=== PATIENT | female | born 1975 | race Caucasian/White ===

== ENCOUNTER 2018-03-15 22:12 | Emergency (ER) | payer OTHER ==
[~2018-03-15] VITALS: Ht 157.5 cm; Wt 61.2 kg
[2018-03-16] MEDS ORDERED: KETO10TA2 PO (03:03)
[2018-03-16] MEDS ORDERED: CYCLOBENZAPRINE10 MG PO (03:03)
[2018-03-16] MEDS ORDERED: ORPHENADRINE C100 MG PO (03:03)
== END 2018-03-16 03:00 | disposition home or self-care (01) ==
LOC: ER 22:12
DX: M62.838 Other muscle spasm (principal)

== ENCOUNTER 2018-04-14 01:13 | Emergency (ER) | payer OTHER ==
[~2018-04-14] VITALS: Ht 162.6 cm; Wt 59.0 kg
[~2018-04-14 01:13] MED LIST: CYCLOBENZAPRINE10 MG PO; KETO10TA2 PO; ORPHENADRINE C100 MG PO
[2018-04-14] MEDS ORDERED: DICLOFENAC POTA50 MG PO (06:25)
== END 2018-04-14 06:59 | disposition home or self-care (01) ==
LOC: ER 01:13
DX: S80.12XA Contusion of left lower leg, initial encounter (principal); W18.39XA Other fall on same level, initial encounter; Y93.89 Activity, other specified; Y92.89 Other specified places as the place of occurrence of the external cause; Y99.8 Other external cause status

== ENCOUNTER 2021-01-02 23:27 | Emergency (ER) | payer OTHER ==
[~2021-01-02] VITALS: Ht 154.9 cm; Wt 59.0 kg
[~2021-01-02 23:27] MED LIST changes: +DICLOFENAC POTA50 MG PO
[2021-01-03] MEDS ORDERED: KETO10TA2 PO (00:31)
[2021-01-03] MEDS ORDERED: ORPHENADRINE C100 MG PO (00:31)
== END 2021-01-03 00:40 ==
LOC: ER 23:27
DX: M62.838 Other muscle spasm (principal)

== ENCOUNTER 2021-02-03 22:57 | Emergency (ER) | payer OTHER ==
[~2021-02-03] VITALS: Ht 154.9 cm; Wt 58.1 kg
[2021-02-04] MEDS ORDERED: DICLOFENAC SOD100 MG PO (02:58)
[2021-02-04] MEDS ORDERED: ORPHENADRINE C100 MG PO (02:58)
== END 2021-02-04 03:05 | disposition home or self-care (01) ==
LOC: ER 22:57
DX: M54.50 Low back pain, unspecified (principal)

== ENCOUNTER 2021-03-06 14:21 | Emergency (ER) | payer OTHER ==
[~2021-03-06] VITALS: Ht 160 cm; Wt 54.0 kg
[~2021-03-06 14:21] MED LIST changes: +DICLOFENAC SOD100 MG PO
== END 2021-03-06 18:48 | disposition home or self-care (01) ==
LOC: ER 14:21
DX: R42 Dizziness and giddiness (principal)

== ENCOUNTER 2021-04-04 11:49 | Outpatient (CLI) | payer OTHER | END 2021-04-04 12:03 | disposition home or self-care (01) | LOC: RAD 11:49 | PROVIDERS: ATTEND Physical Medicine & Rehabilitation | DX: M54.2 Cervicalgia (principal); M54.59 Other low back pain ==

== ENCOUNTER 2021-07-29 10:02 | Outpatient (CLI) | payer OTHER | END 2021-07-29 10:13 | disposition home or self-care (01) | LOC: RAD 10:02 | PROVIDERS: ATTEND Physical Medicine & Rehabilitation | DX: M54.2 Cervicalgia (principal); M25.511 Pain in right shoulder ==

== ENCOUNTER 2021-08-31 09:17 | Outpatient (CLI) | payer OTHER | END 2021-08-31 09:39 | disposition home or self-care (01) | LOC: SONOGRAMA 09:17 | PROVIDERS: ATTEND Physical Medicine & Rehabilitation | DX: M25.511 Pain in right shoulder (principal); M75.121 Complete rotator cuff tear or rupture of right shoulder, not specified as traumatic ==

== ENCOUNTER 2021-10-14 00:32 | Emergency (ER) | payer OTHER ==
[~2021-10-14] VITALS: Ht 154.9 cm; Wt 58.1 kg
[2021-10-14] MEDS ORDERED: KETO10TA2 PO (03:33)
[2021-10-14] MEDS ORDERED: ORPHENADRINE C100 MG PO (03:33)
== END 2021-10-14 03:43 ==
LOC: ER 00:32
DX: M62.838 Other muscle spasm (principal)

== ENCOUNTER 2022-03-23 23:41 | Emergency (ER) | payer OTHER ==
[~2022-03-23] VITALS: Ht 154.9 cm; Wt 57.2 kg
[2022-03-24] MEDS ORDERED: ORPHENADRINE C100 MG PO (06:05)
[2022-03-24] MEDS ORDERED: NABUMETONE750 MG PO (06:05)
== END 2022-03-24 06:25 ==
LOC: ER 23:41
DX: M62.838 Other muscle spasm (principal)